=== PATIENT | female | born 1965 | race Caucasian/White ===

== ENCOUNTER 2016-10-16 09:41 | Day surgery (SDC) | payer OTHER ==
[~2016-10-16 09:41] MED LIST: ACETAMINOPHEN 1000MG/100 ML PREMIX IV ONE; CEFAZOLIN 1 Gram 50 ML IVPB ONE
[2016-10-16] MEDS ORDERED: FENTANYL PF 100MCG/2ML VIAL IV ONE ×2 (14:00→15:49)
[2016-10-16] MEDS ORDERED: HYDROCODONE/APAP 7.5/325MG TABLET PO ONE (14:00)
[2016-10-16] MEDS ORDERED: KETOROLAC 30 MG/ML VIAL IVP ONE (14:00)
[2016-10-16] MEDS ORDERED: EPINEPHRINE 1 MG/ML AMPUL SQ ONE (14:00)
[2016-10-16] MEDS ORDERED: DEXAMETHASONE 4 MG/ML 1ML VIAL IVP ONE (15:49)
[2016-10-16] MEDS ORDERED: LIDOCAINE 2% MDV (20MG/ML) 20ML VIAL IV ONE (15:49)
[2016-10-16] MEDS ORDERED: SEVOFLURANE 250 ML INH ONE (15:49)
[2016-10-16] MEDS ORDERED: PROPOFOL 10 MG/ML VIAL IV ONE (15:49)
[2016-10-16] MEDS ORDERED: ROPIVACAINE HCL (NAROPIN) /PF 5MG/ML 20ML VIAL IV ONE (15:49)
[2016-10-16] MEDS ORDERED: MIDAZOLAM HCL 2MG/2ML VIAL IV ONE (15:49)
--- NOTE | 2016-10-20 10:44 | Operative Note ---
DATE OF SURGERY: 10/16/2016 Surgeon: Galileo Louis D.O. Referring Physician: Simon Boothe D.O. PREOPERATIVE DIAGNOSES: 1. Tear of the right rotator cuff. 2. Impingement syndrome, right shoulder. POSTOPERATIVE DIAGNOSES: 1. Tear of the right rotator cuff. 2. Impingement syndrome, right shoulder. OPERATIIVE PROCEDURES: 1. Arthroscopic repair of the right rotator cuff. 2. Arthroscopic subacromial decompression and acromioplasty of the right shoulder. PROCEDURE: This 51-year-old female was taken to the operating room and placed in the supine position on the operating room table. General anesthetic was administered. She was then placed in the deep chair position with all bony prominences well padded and head well secured. The right shoulder was prepped with Hibiclens and draped in the usual sterile fashion. A posterior portal was established in the glenohumeral joint, and initial evaluation of the joint demonstrated normal appearance of the articular cartilage. The patient's subscapularis demonstrated minimal scuffing. Biceps tendon appeared normal. However, the supraspinatus was completely torn, so this was clearly a full-thickness defect, with a full-thickness defect from the articular surface, appearing to be about 3 quarters of a centimeter. Once we got on the bursal surface, it appeared to be much larger. The cuff was debrided from the articular surface through an anterior portal. We then placed a scope in the subacromial space, and thorough subacromial decompression and acromioplasty were performed, and excellent visualization of the cuff was then accomplished. The margins of the cuff were debrided. This was essentially a U-type tear. We debrided the tuberosity to healthy appearing bone. Subsequently, we felt that we could repair this utilizing the [employer] technique; therefore, once we had established the cannulae and portals, we began the repair by placing a 4.75 swivel-lock anchor with a FiberTape attached at the anterior margin of the tear adjacent to the articular cartilage. A 2nd was placed at the posterior margin of the tear with TigerTape, and these sutures were then shuttled to the rotator cuff at the appropriate positions. Subsequently, a single limb of each one of these sutures was then grasped and placed through a 3rd swivel-lock anchor, which was placed inferior to the anterior anchor and traction placed on the sutures to bring the cuff back down to its anatomic position and, thus, creating a lateral repair as well. Once the position had been determined to be satisfactory, the anchor was impaled and a 4th swivel-lock anchor was then used to capture the remaining 2 tails of suture, and this anchor was placed inferior to the posterior anchor and traction placed on the sutures and then the anchor impaled. Once the repair was complete, it was visualized and seen to be satisfactory, holding the cuff down tightly to its anatomic position. The wound was irrigated was suctioned and the portals closed with 4-0 nylon sutures. Sterile dressings with an UltraSling were applied, and the patient was taken to the recovery room in satisfactory condition. GROSS PATHOLOGY: This patient demonstrated a complex tear of the supraspinatus tendon. The quality of the tendon was actually fairly good past the tear, and the tuberosity was debrided to bring the cuff down to the anatomic footprint and secured in that position with the swivel-lock anchors, as described above. Thorough subacromial decompression was performed, and acromioplasty also performed. DO NIYA Nichole
== END 2016-10-16 14:05 | disposition home or self-care (01) ==
LOC: SUR 09:41
PROVIDERS: ATTEND Orthopaedic Surgery
DX: M75.121 Complete rotator cuff tear or rupture of right shoulder, not specified as traumatic (principal); M75.41 Impingement syndrome of right shoulder
CPT/HCPCS: 29827; 29826; 01630; J1885; J3010; J0690; J2795; J0171

== ENCOUNTER 2017-01-27 07:38 | Day surgery (SDC) | payer OTHER ==
[~2017-01-27 07:38] MED LIST changes: +ACETAMINOPHEN 1,000 MG/100 ML BTL IV ONE; -ACETAMINOPHEN 1000MG/100 ML PREMIX IV ONE; -CEFAZOLIN 1 Gram 50 ML IVPB ONE
[2017-01-27] MEDS ORDERED: *PACU ONLY* KETAMINE HCL 10 MG/ML (20ML) VIAL IV ONE (14:00)
[2017-01-27] MEDS ORDERED: FENTANYL PF 100MCG/2ML VIAL IV ONE (14:00)
[2017-01-27] MEDS ORDERED: PROPOFOL 10 MG/ML VIAL IV ONE (14:00)
[2017-01-27] MEDS ORDERED: MIDAZOLAM HCL 2MG/2ML VIAL IV ONE (14:00)
[2017-01-27] MEDS ORDERED: BUPIVACAINE 0.25% W/EPI MPF 30ML VIAL IVP ONE (14:39)
[2017-01-27] MEDS ORDERED: KETOROLAC 30 MG/ML VIAL IVP ONE (14:39)
[2017-01-27] MEDS ORDERED: BETAMETHASONE 6 MG/1 ML 5ML VIAL IM ONE (14:39)
--- NOTE | 2017-01-28 12:56 | Operative Note ---
DATE OF SURGERY: 01/27/2017 Surgeon: Galileo Louis DO PREOPERATIVE DIAGNOSIS: Adhesive capsulitis of the right shoulder. POSTOPERATIVE DIAGNOSIS: Adhesive capsulitis of the right shoulder. OPERATION: 1. Manipulation under anesthesia, right shoulder. 2. Injection of right shoulder. DESCRIPTION OF PROCEDURE: This 51-year-old female was taken to the operating room and placed in the supine position on the operating room table where general anesthetic was administered. The right shoulder was then taken through range of motion and found to be restricted at approximately 60 degrees of abduction, 140 degrees of forward flexion, external rotation to about 60 degrees, internal rotation approximately 60 degrees. With gentle pressure, the shoulder was taken through 120 degrees of abduction, 180 degrees of forward flexion, external rotation to about 100 degrees, internal rotation to 90 degrees, and full extension. The patient also had full crossover. Disruption of the cicatrix could easily be palpated. The anterior aspect of the shoulder was then prepped and then the 22 gauge spinal needle was easily advanced into the glenohumeral joint and a mixture of 4 mL of 0.25% Marcaine with epinephrine and 2 mL of Celestone Soluspan was injected into the glenohumeral joint. Sterile bandage was applied. The patient taken to the recovery room in satisfactory condition. GROSS PATHOLOGY: This patient had adhesive capsulitis following rotator cuff repair. Disruption of the cicatrix was relatively easy, so I think it is unlikely that disruption of the repair occurred. CC: Mario CORDON
== END 2017-01-27 13:35 | disposition home or self-care (01) ==
LOC: SUR 07:38
PROVIDERS: ATTEND Orthopaedic Surgery
DX: M75.01 Adhesive capsulitis of right shoulder (principal)
CPT/HCPCS: J1885